=== PATIENT | male | born 1945 | race Caucasian/White ===

== ENCOUNTER 2024-07-12 15:05 | Outpatient (RCR) | payer MEDICARE, SELFPAY | END 2024-07-12 23:59 | disposition home or self-care (01) | LOC: ROT 15:05 | PROVIDERS: ATTENDING PHYSICIAN Nurse Practitioner; FAMILY PHYSICIAN Internal Medicine | DX: G20.A1 Parkinson's disease without dyskinesia, without mention of fluctuations (principal); Z73.6 Limitation of activities due to disability | CPT/HCPCS: 97110; 97112; 97163; 97166; 97530; 97535 ==

== ENCOUNTER 2024-07-14 15:02 | Outpatient (RCR) | payer MEDICARE, SELFPAY | END 2024-07-14 23:59 | disposition home or self-care (01) | LOC: ROT 15:02 | PROVIDERS: ATTENDING PHYSICIAN Nurse Practitioner; FAMILY PHYSICIAN Internal Medicine | DX: G20.A1 Parkinson's disease without dyskinesia, without mention of fluctuations (principal); Z73.6 Limitation of activities due to disability; M62.81 Muscle weakness (generalized) | CPT/HCPCS: 97110; 97112; 97535 ==

== ENCOUNTER 2025-01-05 06:20 | Outpatient (RCR) | payer MEDICARE, SELFPAY | END 2025-01-05 23:59 | disposition home or self-care (01) | LOC: RPT 06:20 | PROVIDERS: ATTENDING PHYSICIAN Nurse Practitioner; FAMILY PHYSICIAN Internal Medicine | DX: G20.A1 Parkinson's disease without dyskinesia, without mention of fluctuations (principal); Z73.6 Limitation of activities due to disability; M54.50 Low back pain, unspecified; R26.89 Other abnormalities of gait and mobility; Z85.46 Personal history of malignant neoplasm of prostate | CPT/HCPCS: 97163; 97530 ==

== ENCOUNTER 2025-02-07 14:41 | Outpatient (RCR) | payer MEDICARE, SELFPAY | END 2025-02-07 23:59 | disposition home or self-care (01) | LOC: RPT 14:41 | PROVIDERS: ATTENDING PHYSICIAN Nurse Practitioner; FAMILY PHYSICIAN Internal Medicine | DX: G20.A1 Parkinson's disease without dyskinesia, without mention of fluctuations (principal); Z73.6 Limitation of activities due to disability; M54.50 Low back pain, unspecified; R26.89 Other abnormalities of gait and mobility; Z85.46 Personal history of malignant neoplasm of prostate | CPT/HCPCS: 97110; 97112; 97530 ==

== ENCOUNTER 2025-03-08 14:00 | Outpatient (RCR) | payer MEDICARE, SELFPAY | END 2025-03-09 05:43 | disposition home or self-care (01) | LOC: RPT 14:00 | PROVIDERS: ATTENDING PHYSICIAN Nurse Practitioner; FAMILY PHYSICIAN Internal Medicine | DX: G20.A1 Parkinson's disease without dyskinesia, without mention of fluctuations (principal); Z73.6 Limitation of activities due to disability; M54.50 Low back pain, unspecified; R26.89 Other abnormalities of gait and mobility; Z85.46 Personal history of malignant neoplasm of prostate | CPT/HCPCS: 97110; 97112; 97530 ==

== ENCOUNTER 2025-05-30 10:45 | Emergency (ER) | payer MEDICARE, SELFPAY ==
[2025-05-30 10:58] VITALS: BP 147/89
--- NOTE | 2025-05-30 13:10 | ED.GENMED ---
History of Present Illness
General
Chief Complaint: Back Pain
Time Seen by Provider: 05/30/25 12:42
History of Present Illness
History of Present Illness:
79-year-old male with with history of Parkinson's and hypertension presenting to the emergency department for right-sided back pain. Patient reports for the past week he has been having right lumbar back pain extending into the hip. Notes that the
symptoms started after he was working out at the gym and doing particular movements including squatting with leg lifts. Denies numbness or tingling to his extremity. Denies direct trauma to the leg. Denies fever. He saw his primary care doctor,
was prescribed anti-inflammatory medication, however notes that the pain is not improving. Denies chest pain or difficulty breathing. Denies bowel or bladder issues. Denies additional acute medical complaints
Past History
Past History
ED Past Medical History: HTN and Other (BPH); Negative Hypercholesterolemia or IDDM
ED Past Surgical History: None
Social History
Tobacco: Non-smoker
Alcohol: None
Drug: None
Personal:
Living: with family
Employment: Retired
Family History
Family History: Hypertension; Negative Early CAD
Phy Exam
Physical Exam
Physical Exam:
General: Well-appearing, no clinical signs of dehydration, nontoxic and in no acute distress
HEENT: protecting airway
Neck: appears supple
CV: Normal heart rate
Resp: No accessory muscle use, no increased work of breathing
Abd: Soft and non-distended, no tenderness to palpation
Extremities: No deformities, no swelling, no erythema. No midline spinal tenderness. Mild tenderness to the right gluteal region extending into the right hip. Range of motion is grossly intact. Distal sensation and pulses intact
Neuro: alert, no focal neurologic deficit
: deferred
Rectal: deferred
Psych: Normal affect
Skin: Intact
Course
Orders/Labs/Results
Orders:
Orders
05/30/25 13:10
Ketorolac [Toradol] 15 mg IM NOW STA
Hip, Right 2-3 Views [CR Hip - RT w/wo Pel 2-3 Vw*] Urgent
Comment:
Reason For Exam: pain after exercising, right hip
Include a pelvis x-ray?: Yes
Lumbar Spine Complete, 4 View [CR Lumbar Spine Comp Min 4 Vw*] Urgent
Comment:
Reason For Exam: pain after exercising
05/30/25 15:50
Prednisone [Deltasone] 40 mg PO NOW STA
Vital Signs
Initial and Last Documented VS:
Initial Vital Signs
Temp Pulse Resp BP Pulse Ox
97.8 F 87 20 147/89 95
05/30/25 10:58 05/30/25 10:58 05/30/25 10:58 05/30/25 10:58 05/30/25 10:58
Last Documented Vital Signs
Temp Pulse Resp BP Pulse Ox
97.8 F 87 20 147/89 95
05/30/25 10:58 05/30/25 10:58 05/30/25 10:58 05/30/25 10:58 05/30/25 13:11
MDM/Problems Addressed
MDM/Problems Addressed:
79-year-old male with history of right sided back pain. Vital signs on arrival are normal.
On exam, patient is resting comfortably, no acute distress. Overall reassuring examination. Symptoms appear most consistent with muscle strain, and likely subsequent sciatica. Do not suspect any concerning etiology to patient's presenting
symptoms. Do not suspect any spinal fracture in the absence of any direct trauma, and no midline spinal tenderness. No fever, systemic symptoms, or midline tenderness, without concern for spinal abscess or infection. No red flag such as bowel or
bladder incontinence, focal weakness, or any sensory deficits on exam, without present concern for spinal compression. Will screen with x-ray imaging of the right hip. Patient is also requesting an x-ray of his back. Did communicate that likely
low utility. Will treat with Toradol and reassess for improvement.
15:50 - X-rays are unremarkable without any evidence of fracture or malalignment. Continue to suspect sciatica as etiology of patient's symptoms. Discussed treatment modalities. Will place on short course of steroids in addition to the NSAIDs and
advise follow-up with PCP for possible physical therapy. Return precautions discussed and patient verbalized understanding
*Pulse Oximetry
SaO2: 95
Oxygen Mode of Delivery: Room air
Patient hypoxic: no
*Critical Care Note
Total Time (30-74mins, 75-104mins- exclusive of procedures): Not Applicable
ED Attending Note
-
Portions of this chart may have been created with voice recognition software.� Occasional wrong word or��sound alike� substitutions may have occurred due to the inherent limitations of voice recognition software.
Discharge Plan
Departure
Prescriptions:
No Action
multivitamin [Kmd-Rwtclj-Qrrmx] 1 EACH tablet
1 ea PO DAILY
aspirin 81 MG tablet,chewable
81 mg PO DAILY
coenzyme Q10 [Co Q-10] 200 MG capsule
200 mg PO DAILY
valsartan-hydrochlorothiazide 1 EACH tablet
1 ea PO DAILY
tamsulosin 0.4 mg Capsule
0.4 mg PO DAILY
escitalopram oxalate 20 mg Tablet
20 mg PO DAILY
rosuvastatin 5 mg Tablet
5 mg PO DAILY
cholecalciferol (vitamin D3) 125 mcg (5,000 unit) Tablet
125 mcg PO DAILY
krill jdn-mhzna-3-dha-epa 300-90 (27-45) mg Capsule
1 cap PO DAILY
Referrals:
Javier Suarez MD [Family Provider, Internal Medicine]
Interventions
Interventions:
*Risk Screen - Suicide Last Done: 05/30/25 10:58
*General Assessment Last Done: 05/30/25 13:38
*Neglect/Abuse Screening Last Done: 05/30/25 10:58
*ED- Fall Risk Assessment Last Done: 05/30/25 13:38
*ED COVID-19 Vaccine History Last Done: 05/30/25 13:38
ED-Musculoskeletal Assessment Last Done: 05/30/25 13:38
Discharge Date and Time
Print Language: ITALIAN
[2025-05-30 13:20] VITALS: BP 148/77
[2025-05-30 13:37] VITALS: BMI 30.1
[2025-05-30] MEDS: TORADOL 15 MG IM (13:41)
[2025-05-30 16:00] VITALS: BP 146/73
[2025-05-30] MEDS: DELTASONE 40 MG PO (16:06)
== END 2025-05-30 16:00 | disposition home or self-care (01) ==
LOC: EMR 10:45
PROVIDERS: EMERGENCY PHYSICIAN Student in an Organized Health Care Education/Training Program; FAMILY PHYSICIAN Internal Medicine
DX: M54.40 Lumbago with sciatica, unspecified side (principal); G20.A1 Parkinson's disease without dyskinesia, without mention of fluctuations; I10 Essential (primary) hypertension
CPT/HCPCS: 96372; 99284; 72110; 73502

== ENCOUNTER 2025-06-03 08:47 | Emergency (ER) | payer MEDICARE, SELFPAY ==
[2025-06-03 08:49] VITALS: BP 183/88
--- NOTE | 2025-06-03 09:29 | EDRN ---
Jennifer Torres PA in room w/ pt.
--- NOTE | 2025-06-03 09:41 | ED.GENMED ---
History of Present Illness
General
Chief Complaint: Musculo-Skeletal Complaint
Source: patient and spouse
Time Seen by Provider: 06/03/25 09:29
History of Present Illness
History of Present Illness:
79-year-old male with past medical history of hypertension, GERD, previous prostate cancer presenting to the emergency department for reevaluation of continued right-sided hip pain that began a little over 1 week ago following an exercise class
noting he has had continued difficulty ambulating and standing secondary to the pain. Patient was seen in this ER about 4 days ago where he had x-ray imaging done of the lower back and without any acute abnormalities found, advised to follow-up
with primary care provider, prescribed naproxen and methylprednisolone which she has been taking without much relief. Patient returned back to the ER today due to the persistent pain and unfortunately unable to follow-up with primary care currently
his primary care is away on vacation. There are no reported fevers, chills, rigors, direct traumatic injuries, focal weakness or numbness. states that last night patient was urinating a little bit more frequently and while she is unsure if
this is related states wanted to make sure that we knew about this symptom. Secondarily, notes that patient has Parkinson's disease and has an appointment with his neurologist this afternoon at 3 PM.
Past History
Past History
ED Past Medical History: Cancer, HTN and Other (BPH); Negative Hypercholesterolemia or IDDM
ED Past Surgical History: Other
Social History
Tobacco: Non-smoker
Alcohol: None
Drug: None
Personal:
Living: with family
Employment: Retired
Family History
Family History: Hypertension; Negative Early CAD
Review of Systems
Review of Systems
All Other Systems: ROS reviewed and negative except as documented in HPI and ROS
Phy Exam
Physical Exam
Physical Exam:
GENERAL: Alert , in no apparent distress at rest
EYE: clear conjunctiva b/l
HEAD: NCAT
ENT: o/p clr, mmm.
ABDOMEN: Soft, without focal tenderness, no r/g, no cvat, negative Kimball sign, no tenderness at McBurney's point
NEUROLOGICAL: Alert and oriented
SKIN: Warm and dry, skin intact.
MUSCULOSKELETAL: RLE: No obvious deformities, erythema, edema, ecchymosis, abrasions/lacerations. No focal bony ttp. ROM with forward flexion and abduction is limited 2/2 pain. Extremity is otherwise warm and well-perfused. Easily palpable
peripheral pulses. Sensation grossly intact to light touch
PSYCH: Normal and appropriate interaction.
Scores
Heart Failure Risk
Heart Failure Risk Score: Not Applicable
Heart Score for Chest Pain Patients
STEMI patient?: Not applicable
Withdrawal Assessment of Alcohol
Withdrawal Assessment Completed?: Not applicable
Course
Orders/Labs/Results
Orders:
Orders
06/03/25 09:37
CT Pelvis W/o Iv Contrast Urgent
Comment:
Reason For Exam: right hip pain, pain ambulating, neg XR imaging
06/03/25 10:03
Urinalysis Reflex To Culture Urgent
Date Specimen was Collected: 06/03/25
Time Specimen was Collected: 10:02
Urine Microscopic Reflex Cult Urgent
06/03/25 11:07
Ketorolac [Toradol] 30 mg IM NOW STA
Abnormal Lab Results
06/03/25
10:03
Urine Ketones 1+ A
(Negative)
Ur Occult Blood Reflex 3+ A
(Negative)
Urine RBC 7-10 A /HPF
(0-2)
Urine Bacteria (Reflex) Few A
(Negative)
Urine Albumin (Reflex) 2+ A
(Neg - Trace)
Vital Signs
Initial and Last Documented VS:
Initial Vital Signs
Temp Pulse Resp BP Pulse Ox
98.4 F 64 18 183/88 95
06/03/25 08:49 06/03/25 08:49 06/03/25 08:49 06/03/25 08:49 06/03/25 08:49
Last Documented Vital Signs
Temp Pulse Resp BP Pulse Ox
98.4 F 55 16 181/93 95
06/03/25 08:49 06/03/25 11:15 06/03/25 11:15 06/03/25 11:15 06/03/25 11:15
MDM/Problems Addressed
Differential Diagnosis Includes:
Bursitis
Tendonitis
Muscle strain
Occult fracture
Pelvic fracture
No fevers and still has ROM making septic arthritis less likely
UTI/cystitis
Mets from known previous prostate cancer
MDM/Problems Addressed:
79-year-old male presenting back to the emergency department for continued right-sided hip/pelvic pain over the last week or so since completing a exercise class. Patient already had x-ray imaging 4 days ago which did not yield any acute pathology.
Given the continued pain and difficulty ambulating will obtain CT scan to evaluate for possible occult fracture. Will also send urinalysis given the reported urinary symptoms last night. Disposition pending.
*Radiology
Radiology exam reviewed: radiology read reviewed
*Pulse Oximetry
SaO2: 95
Oxygen Mode of Delivery: Room air
Patient hypoxic: no
*Critical Care Note
Total Time (30-74mins, 75-104mins- exclusive of procedures): Not Applicable
Patient Management
Escalation/DeEscalation of care consider admission/obs:
CT findings were negative for any acute pathologies. Chronic findings discussed with patient and family. Patient's was able to have an appointment scheduled at [facility] orthopedics for this coming Friday. They are requesting something
for pain. Given patient has already been taking steroid tapers and oral anti-inflammatories we had discussion about potential risks of opioid based medications, patient and both expressed understanding and were still requesting something else
for pain. A prescription for Percocet was sent to pharmacy. They were advised on potential side effects as well as advised to take with a stool softener.
ED Attending Note
-
Portions of this chart may have been created with voice recognition software.� Occasional wrong word or��sound alike� substitutions may have occurred due to the inherent limitations of voice recognition software.
Discharge Plan
Departure
Patient Disposition: Home (Routine Discharge)
Date of Disposition: 06/03/25
Time of Disposition: 10:59
Patient with high blood pressure during this ER visit?: Yes
Discharge Problem:
Hip pain, right
Instructions: Hip pain - ED (DC)
Prescriptions:
New
oxycodone-acetaminophen [Percocet] 5-325 mg tablet
1 tab PO Q6HPRN PRN (Reason: pain) Qty: 5 0RF
No Action
multivitamin [Whs-Rlznic-Nfady] 1 EACH tablet
1 ea PO DAILY
aspirin 81 MG tablet,chewable
81 mg PO DAILY
coenzyme Q10 [Co Q-10] 200 MG capsule
200 mg PO DAILY
valsartan-hydrochlorothiazide 1 EACH tablet
1 ea PO DAILY
tamsulosin 0.4 mg Capsule
0.4 mg PO DAILY
escitalopram oxalate 20 mg Tablet
20 mg PO DAILY
rosuvastatin 5 mg Tablet
5 mg PO DAILY
cholecalciferol (vitamin D3) 125 mcg (5,000 unit) Tablet
125 mcg PO DAILY
krill qor-ckqdz-9-dha-epa 300-90 (27-45) mg Capsule
1 cap PO DAILY
methylprednisolone [Medrol (Dylon)] 4 mg tablets,dose pack
See Rx Instructions .ROUTE .COMPLEX Qty: 21 0RF
Rx Instructions:
for 6 days
naproxen 500 mg tablet
500 mg PO BID PRN (Reason: Pain) 10 Days Qty: 20 0RF
Referrals:
Javier Suarez MD [Family Provider, Internal Medicine]
Interventions
Interventions:
*Risk Screen - Suicide Last Done: 06/03/25 08:49
*General Assessment Last Done: 06/03/25 08:49
*Neglect/Abuse Screening Last Done: 06/03/25 08:51
*ED- Fall Risk Assessment Last Done: 06/03/25 09:50
*ED COVID-19 Vaccine History Last Done: 06/03/25 08:49
*Nursing Disposition Last Done: 06/03/25 11:25
ED-Musculoskeletal Assessment Last Done: 06/03/25 10:08
Discharge Date and Time
Discharge Date/Time: 06/03/25 11:25
Print Language: SURINAMESE
[2025-06-03 09:50] VITALS: BMI 28.7
--- NOTE | 2025-06-03 09:53 | EDRN ---
Pt to BR to attempt urine spec.
[2025-06-03 10:06] VITALS: BP 172/95
[2025-06-03 10:19] LABS: Urine Character Clear (Clear)
[2025-06-03 10:30] LABS: Urine Squamous Cell 0-2 /LPF (Few); Urine White Cell 0-2 /HPF (0-5)
--- NOTE | 2025-06-03 11:00 | EDRN ---
Jennifer Torres PA in room w/ pt.
[2025-06-03 11:15] VITALS: BP 181/93
[2025-06-03] MEDS: TORADOL 30 MG IM (11:16)
== END 2025-06-03 11:25 | disposition home or self-care (01) ==
LOC: EMR 08:47
PROVIDERS: Physician Assistant Medical; EMERGENCY PHYSICIAN Emergency Medicine; FAMILY PHYSICIAN Internal Medicine
DX: M25.551 Pain in right hip (principal); I10 Essential (primary) hypertension; G20.A1 Parkinson's disease without dyskinesia, without mention of fluctuations; N40.0 Benign prostatic hyperplasia without lower urinary tract symptoms; K21.9 Gastro-esophageal reflux disease without esophagitis; Z85.46 Personal history of malignant neoplasm of prostate; Z82.49 Family history of ischemic heart disease and other diseases of the circulatory system
CPT/HCPCS: 99284; 96372; 72192; 81003; 81015

== ENCOUNTER → 2025-06-11 07:16 | Outpatient (REF) | payer MEDICARE, SELFPAY | LOC: MRI 07:16 | PROVIDERS: ATTENDING PHYSICIAN Physical Medicine & Rehabilitation; FAMILY PHYSICIAN Internal Medicine | DX: M54.16 Radiculopathy, lumbar region (principal) | CPT/HCPCS: 72148 ==

== ENCOUNTER 2025-07-12 15:16 | Outpatient (RCR) | payer MEDICARE, SELFPAY | END 2025-07-12 23:59 | disposition home or self-care (01) | LOC: RPT 15:16 | PROVIDERS: ATTENDING PHYSICIAN Nurse Practitioner; FAMILY PHYSICIAN Internal Medicine | DX: M54.16 Radiculopathy, lumbar region (principal); R26.89 Other abnormalities of gait and mobility; G20.A1 Parkinson's disease without dyskinesia, without mention of fluctuations; Z73.6 Limitation of activities due to disability; R42 Dizziness and giddiness; R26.2 Difficulty in walking, not elsewhere classified; M62.81 Muscle weakness (generalized) | CPT/HCPCS: 97010; 97110; 97140; 97163 ==

== ENCOUNTER 2025-09-17 17:34 | Emergency (ER) | payer MEDICARE, SELFPAY ==
[2025-09-17] VITALS (8 sets, daily range): BP systolic 153–177; BP diastolic 68–92; BMI 30.6
[2025-09-17 18:44] LABS: Hematocrit 43.9 % (39.0-52.0); Hemoglobin 15.8 g/dL (13.0-18.0); Mean Corp Hgb Conc. 36.0 g/dL (33.0-37.0); Mean Corpuscular Volume 92.2 fL (80.0-94.0); Nucleated Red Blood Cells % 0 % (-); Platelet Count 143 10^3/uL (130-400); Red Cell Dist. Width 12.3 % (11.5-14.5)
[2025-09-17 18:59] LABS: ALT (SGPT) 42 U/L (0-50); AST (SGOT) 175 U/L (17-59); Albumin 4.1 g/dl (3.5-5.0); Alkaline Phosphatase 102 U/L (38-126); Blood Urea Nitrogen 15 mg/dl (9-20); Calcium 9.1 mg/dl (8.4-10.2); Carbon Dioxide 22 mmol/L (22-30); Chloride 107 mmol/L (98-107); Estimated Creatinine Clearance 113 ml/min; Glucose 115 mg/dl (70-99); Magnesium 2.4 mg/dl (1.6-2.3); Potassium 4.1 mmol/L (3.5-5.1); Sodium 136 mmol/L (135-145); Total Protein 6.6 g/dl (6.3-8.2); eGFR > 60.00
[2025-09-17 19:23] LABS: Troponin I 0.027 ng/ml
--- NOTE | 2025-09-17 20:28 | ED.GENMED ---
History of Present Illness
General
Chief Complaint: Chest Pain
Time Seen by Provider: 09/17/25 18:13
History of Present Illness
History of Present Illness:
79-year-old male with history of hypertension and Parkinson's presenting to the emergency department for chest discomfort. Patient reports around 4 PM he took 2 Tylenol. He is currently recovering from a herniated disc. After taking the Tylenol,
felt some midsternal chest discomfort. He thought that it might be indigestion, took some Tums. Symptoms upon improved. Does note some continued dullness. Denies any difficulty breathing. Does also report some increased lower extremity
swelling, however was recently started on meloxicam and gabapentin, so they stopped the meloxicam for concern that that could be causing his swelling. Denies significant pain to the lower extremities. Denies known cardiac history. Denies known
history of CHF. Denies additional acute medical complaint
Past History
Past History
ED Past Medical History: Cancer, HTN and Other (BPH); Negative Hypercholesterolemia or IDDM
ED Past Surgical History: Other
Social History
Tobacco: Non-smoker
Alcohol: None
Drug: None
Personal:
Living: with family
Employment: Retired
Family History
Family History: Hypertension; Negative Early CAD
Phy Exam
Physical Exam
Physical Exam:
General: Well-appearing, no clinical signs of dehydration, nontoxic and in no acute distress
HEENT: protecting airway
Neck: appears supple
CV: Normal heart rate, regular rhythm
Resp: No accessory muscle use, no increased work of breathing, lungs clear to auscultation bilaterally
Abd: Soft and non-distended, no tenderness to palpation
Extremities: No deformities, +2 pitting edema bilaterally, symmetric without erythema
Neuro: alert, no focal neurologic deficit
: deferred
Rectal: deferred
Psych: Normal affect
Skin: Intact
Scores
Heart Score for Chest Pain Patients
STEMI patient?: No
History: Slightly or Non-Suspicious
ECG: Normal
Age: >/= 65 years
Risk Factors: 1 or 2 Risk Factors
Troponin: </= Normal Limit
Heart Score for Chest Pain Patients: 3
Heart Score Risk: 2.5% MACE over next 6 weeks
Course
Orders/Labs/Results
Orders:
Orders
09/17/25 17:34
Electrocardiogram (*1) Urgent
Reason for Study: Chest Pain
09/17/25 17:35
EKG- Treatment ONCE
09/17/25 18:08
CXR2 [CR Chest - 2 Views ] Urgent
Comment:
Reason For Exam: chest pain with SOB
09/17/25 18:34
Complete Blood Count/With Diff Urgent
Comprehensive Metabolic Panel Urgent
Magnesium Urgent
NT-proBNP Urgent
Troponin I Urgent
09/17/25 18:55
US Legs, Bilateral [US Periph Venous LOWER Ext Juan] Urgent
Comment:
Reason For Exam: swelling
09/17/25 20:10
EKG- Treatment ONCE
09/17/25 21:30
Electrocardiogram (*1) Urgent
Reason for Study: Chest Pain
09/17/25 21:37
Troponin I Urgent
Abnormal Lab Results
09/17/25
18:34
MCH 33.2 H pg
(27.0-31.0)
Absolute Monos (auto) 0.7 H 10^3/uL
(0.1-0.6)
Lymphocytes % 17.1 L %
(20.5-51.1)
Monocytes % 10.2 H %
(1.7-9.3)
Creatinine 0.6 L mg/dL
(0.7-1.3)
Glucose 115 H mg/dl
(70-99)
Magnesium 2.4 H mg/dl
(1.6-2.3)
AST 175 H U/L
(17-59)
09/17/25 18:34
09/17/25 18:34
Vital Signs
Initial and Last Documented VS:
Initial Vital Signs
Temp Pulse Resp BP Pulse Ox
98.6 F 73 20 169/92 97
09/17/25 17:40 09/17/25 17:40 09/17/25 17:40 09/17/25 17:40 09/17/25 17:40
Last Documented Vital Signs
Temp Pulse Resp BP Pulse Ox
98.6 F 63 18 160/81 96
09/17/25 18:26 09/17/25 22:45 09/17/25 22:45 09/17/25 22:00 09/17/25 22:45
MDM/Problems Addressed
MDM/Problems Addressed:
79-year-old male with history of Parkinson's, hypertension, currently off blood pressure medication, and history of herniated disc presenting for midsternal chest pain. Vital signs on arrival significant for high blood pressure.
On exam, patient is resting comfortably, no acute distress, notes that the chest pain has improved since onset. Pain started after he took some Tylenol. Suspect possible gastric component to symptoms, however patient does have cardiac factors.
EKG obtained on arrival, with no obvious ischemic abnormality. Plan for laboratory analysis including troponin. Patient also notes lower extremity edema, however denies any dyspnea on exertion or orthopnea. Will obtain BNP and chest x-ray imaging.
20:55 - BNP within normal limits. Chest x-ray without signs of volume overload. Without present concern for CHF. Troponin is detectable, however within normal limits. Given onset of patient's symptoms, will repeat troponin and EKG to ensure no
interval change. At this time patient notes that his pain is gone. Lower extremity DVT ultrasound obtained, no DVT. Suspect dependent edema.
22:50 - Repeat EKG and troponin within normal limits. Patient remains chest pain-free. Blood pressure is slightly elevated, ever does have underlying history of hypertension, had previously been on medications. At this time feel stable for
discharge, however did advise close interval follow-up with primary care doctor for blood pressure recheck and possible restarting medication. Also advised follow-up with his heart coordinator. Return precautions discussed with patient and family at
bedside who verbalized understanding
*Pulse Oximetry
SaO2: 97
Oxygen Mode of Delivery: Room air
Patient hypoxic: no
*EKG
Interpreted by ED Provider?: Yes
EKG Intrepretation Date: 09/17/25
EKG Intrepretation Time: 20:52
Interpretation: normal
Comparison EKG: no changes
Heart Rate: 72
Rate: normal
Rhythm: sinus
Beecher: normal axis
Interval: normal interval
QRS Pattern: normal QRS
Ischemia: no ischemia
*Critical Care Note
Total Time (30-74mins, 75-104mins- exclusive of procedures): Not Applicable
ED Attending Note
-
Portions of this chart may have been created with voice recognition software.� Occasional wrong word or��sound alike� substitutions may have occurred due to the inherent limitations of voice recognition software.
Discharge Plan
Departure
Patient Disposition: Home (Routine Discharge)
Date of Disposition: 09/17/25
Time of Disposition: 22:53
Patient with high blood pressure during this ER visit?: Yes
Condition: Good
Discharge Problem:
Chest pain, Hypertension
Instructions: Chest pain (DC), BLOOD PRESSURE
Prescriptions:
No Action
multivitamin [Xle-Ujeure-Yuhsg] 1 EACH tablet
1 ea PO DAILY
aspirin 81 MG tablet,chewable
81 mg PO DAILY
coenzyme Q10 [Co Q-10] 200 MG capsule
200 mg PO DAILY
valsartan-hydrochlorothiazide 1 EACH tablet
1 ea PO DAILY
tamsulosin 0.4 mg Capsule
0.4 mg PO DAILY
escitalopram oxalate 20 mg Tablet
20 mg PO DAILY
rosuvastatin 5 mg Tablet
5 mg PO DAILY
cholecalciferol (vitamin D3) 125 mcg (5,000 unit) Tablet
125 mcg PO DAILY
krill sur-qrsro-6-dha-epa 300-90 (27-45) mg Capsule
1 cap PO DAILY
methylprednisolone [Medrol (Dylon)] 4 mg tablets,dose pack
See Rx Instructions .ROUTE .COMPLEX Qty: 21 0RF
Rx Instructions:
for 6 days
naproxen 500 mg tablet
500 mg PO BID PRN (Reason: Pain) 10 Days Qty: 20 0RF
oxycodone-acetaminophen [Percocet] 5-325 mg tablet
1 tab PO Q6HPRN PRN (Reason: pain) Qty: 5 0RF
Referrals:
Javier Suarez MD [Family Provider, Internal Medicine]
Activity Restrictions/Additional Instructions:
You were seen in the emergency department for an episode of chest pain
You were found to have reassuring physical exam, EKG, laboratory analysis. Her blood pressure was noted to be elevated while in the emergency department. We recommend close interval follow-up primary care doctor for blood pressure recheck. He had
resolution of your chest pain while in the emergency department, however we recommend close interval follow-up with your heart coordinator possible further screening such as a stress test
Return to the emergency department for any worsening of your symptoms, or any development of chest pain, difficulty breathing, abdominal pain with persistent vomiting and inability to tolerate food or liquid by mouth (concern for dehydration),
weakness, headache or confusion, fever greater than 100.4, or any additional symptoms that are concerning to you.
Thank you for choosing [facility].
Interventions
Interventions:
*Risk Screen - Suicide Last Done: 09/17/25 18:26
*General Assessment Last Done: 09/17/25 17:40
*Neglect/Abuse Screening Last Done: 09/17/25 18:26
*ED COVID-19 Vaccine History Last Done: 09/17/25 18:26
*ED Influenza Vaccine History Last Done: 09/17/25 18:26
[facility] Fall Risk Assessment Tool Last Done: 09/17/25 18:26
*Nursing Disposition Last Done: 09/17/25 23:24
ED- Cardiac Assessment Last Done: 09/17/25 18:26
Discharge Date and Time
Discharge Date/Time: 09/17/25 23:24
Print Language: FRENCH
--- NOTE | 2025-09-17 20:33 | EDRN ---
Updated patient and family on labs and plan to repeat troponin at 2130, patient ambulated to the restroom and back in bed resting comfortably, provided with a turkey sandwich as well at this time.
[2025-09-17 22:08] LABS: Troponin I 0.027 ng/ml
== END 2025-09-17 23:24 | disposition home or self-care (01) ==
LOC: EMR 17:34
PROVIDERS: EMERGENCY PHYSICIAN Student in an Organized Health Care Education/Training Program; FAMILY PHYSICIAN Internal Medicine
DX: R07.89 Other chest pain (principal); G20.A1 Parkinson's disease without dyskinesia, without mention of fluctuations; I10 Essential (primary) hypertension; R22.43 Localized swelling, mass and lump, lower limb, bilateral
CPT/HCPCS: 99285; 71046; 80053; 83735; 83880; 84484; 85025; 93005; 93970

== ENCOUNTER → 2025-09-26 15:50 | Outpatient (REF) | payer MEDICARE, SELFPAY | LOC: HWRCS 15:50 | PROVIDERS: ATTENDING PHYSICIAN Internal Medicine | DX: M79.89 Other specified soft tissue disorders (principal) | CPT/HCPCS: 93306 ==

== ENCOUNTER → 2025-10-10 11:06 | Outpatient (REF) | payer MEDICARE, SELFPAY ==
[2025-10-10 16:05] LABS: PSA, Total - Diagnostic 0.95 ng/ml (0.0-4.0)
== END ==
LOC: HWLAB 11:06
PROVIDERS: ATTENDING PHYSICIAN Specialist; FAMILY PHYSICIAN Internal Medicine
DX: Z85.46 Personal history of malignant neoplasm of prostate (principal)
CPT/HCPCS: 36415; 84153

== ENCOUNTER 2025-10-11 08:22 | Outpatient (RCR) | payer MEDICARE, SELFPAY | END 2025-10-11 23:59 | disposition home or self-care (01) | LOC: RPT 08:22 | PROVIDERS: ATTENDING PHYSICIAN Physical Medicine & Rehabilitation; FAMILY PHYSICIAN Internal Medicine | DX: M51.26 Other intervertebral disc displacement, lumbar region (principal); M43.16 Spondylolisthesis, lumbar region; M48.061 Spinal stenosis, lumbar region without neurogenic claudication; Z73.6 Limitation of activities due to disability; M62.81 Muscle weakness (generalized); R26.89 Other abnormalities of gait and mobility | CPT/HCPCS: 97110; 97162 ==